=== PATIENT | female | born 2000 | race Caucasian/White ===

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

== ENCOUNTER 2020-06-04 20:15 | Emergency (ER) | payer OTHER ==
--- OUTSIDE RECORDS SUMMARY | 2020-06-04 20:17 | XMS REPORT | Continuity of Care Document ---
:2000 Author Organization [facility] t Address [address] [place] [address] [address] [place] [address] Care Team Providers Name Role Phone Anders ISABEL Attending Clinician 2, Lab Attending Clinician Unavailable John STOUT, Luis Felipe Attending Clinician Problems This patient has no known problems. Allergies, Adverse Reactions, Alerts This patient has no known allergies or adverse reactions. Medications This patient has no known medications. Procedures This patient has no known procedures. Encounters Start End Encounter Admission Attending Care Care Encounter Source Date/Time Date/Time Type Type Clinicians Facility Department ID 2020-05-13 2020-05-13 Case Anders LARAJEEV [id number] 00:00:00 00:00:00 Management Jumana Blankenship [id number] [place] [id number] Professio [phone] nal 134 [facility] 2020-05-12 2020-05-12 Process Automation Engineer 2, Adc Lab [facility] [id number] 10:28:05 10:43:05 Visit Krzysztof [id number] [place] [id number] Professio [phone] nal 353 Building 2020-05-12 2020-05-12 Initial Faye Lopez [facility] [id number] 08:44:59 10:18:25 Cam Krzysztof [id number] Visit [place] [id number] Professio [phone] [facility] 134 [facility] Results This patient has no known results.
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
--- OUTSIDE RECORDS SUMMARY | 2020-06-04 20:18 | XMS REPORT | Summary of Care ---
:2000 Author Organization [facility] Address [address] [place] [address] Care Team Providers Name Role Phone Pcp, Patient Does Not Have A Primary Care Provider +1-000-00 0-0000 Reason for Visit Reason Comments LAB Encounter Details Date Type Department Care Team Description 05/12/2020 Flame Channeler Visit [facility] Faye Lopez MD [address] [facility] [address] [place] [address] examination or test, positive result; Professional Office 2, Adc Lab Missed menses Building Phlebotomy Lab Professional Office Building [address] [facility] [address] [place] [address] Allergies No Known Allergiesdocumented as of [...] of this encounter Last Filed Vital Signs Not on filedocumented in this encounter Nursing Notes Adriane Montero - 05/12/2020 2:00 PM CDT Venipuncture collection performed by clean technique on the right anticubitus. Total of 1 attempts were made. Slight pressure and a bandage/dressing were applied to the site(s). The patient experiencedno complications. The following specimens were processed according to instructions and sent to [facility] laboratories per lab order on 05/12/20: LT BLUE SST 1 RED LAV 2 PPT DK GREEN (LiHep) DK GREEN (SodH) [place] DK BLUE (K2) DK BLUE (S) ACD Blood Culture NIPT/NTD documented in this encounter Plan of Treatment Date Type Specialty Care Team Description 01/27/2021 Office Visit Obstetrics & Gynecology Heather Lopez MD [address] [place] [address] [address] [place] [address] [phone] Health Maintenance Due Date Last Done Comments [...] Name Priority Date/Time Associated Diagnosis Comme nts CBC WITH DIFF Routine 05/12/2020 10:33 AM Results for this CDT examination or test, procedu re are in positive result the results Missed menses section. TOTAL BETA HCG Routine 05/12/2020 10:33 AM Missed menses Resul ts for this ASSAY CDT procedure are i n the results section. documented in this encounter Results HCG, QUANTITATIVE, (05/12/2020 10:33 AM CDT) Pathologist Sig [facility] BETA HCG <2.39 Non- female [facility] ITAL and male patients: <5 LABORATORY mIU/mL Specimen Blood Narrative Performed At [facility] LABORATORY Gestational Age Range (mIU/mL) 1-10 Weeks 4 [id number] 11-15 Weeks 16779-889547 16-22 Weeks 7480-345702 23-40 Weeks 1531-938434 Biotin has been reported to cause a negative bias, interpret results relative to patient's use of biotin. Performing Organization Address City/State/Zipcode Phone Number [facility] CLIA: [id number] [place], [place] [id number] LABORATORY [address] CBC WITH DIFF (05/12/2020 10:33 AM CDT) Pathologist [facility] WBC 8.76 4.30 - 11.10 [facility] 10*3/L [facility] LABORATORY RBC 4.83 3.93 - 5.25 [facility] 10*6/L [facility] LABOR[facility] HGB 11.9 11.6 - 15.0 [facility] g/dL [facility] HCT 38.2 35.7 - 45.2 % [facility] MCV 79.1 (L) 80.6 - 95.5 fL [facility] MCH 24.6 (L) 25.9 - 32.8 pg [facility] MCHC 31.2 (L) 31.6 - 35.1 [facility] g/dL [facility] RDW-SD 43.8 39.0 - 49.9 fL [facility] RDW-CV 15.3 12.0 - 15.5 % [facility]OR[facility] PLT 278 166 - 358 [facility] 10*3/L HOSPITAL LABORATORY MPV 11.3 9.5 - 12.9 fL [facility] NRBC/100 WBC 0.0 0.0 - 10.0 /100 [facility] WBCs [facility] LABORAT[facility] NRBC x10^3 <0.01 10*3/L [facility] GRAN MAT (NEUT) % 68.7 % [facility] IMM GRAN % 0.50 % [facility] LYMPH % 22.3 % [facility] MONO % 7.4 % [facility] EOS % 0.9 % [facility] BASO % 0.2 % [facility] GRAN MAT x10^3(ANC) 6.02 1.88 - 7.09 [facility] 10*3/uL [facility] LABORAT[facility] IMM GRAN x10^3 0.04 0.00 - 0.06 [facility] 10*3/uL [facility] LAB[facility] LYMPH x10^3 1.95 1.32 - 3.29 [facility] 10*3/uL [facility] MONO x10^3 0.65 0.33 - 0.92 [facility] 10*3/uL [facility] EOS x10^3 0.08 0.03 - 0.39 [facility] 10*3/uL [facility] LAB[facility] BASO x10^3 <0.03 0.01 - 0.07 [facility] 10*3/uL [facility] LABOR[facility] Specimen Blood Performing Organization Address City/State/Zipcode Phone Number [facility] CLIA: [id number] [place] [address] [address] documented in this encounter Visit Diagnoses Diagnosis examination or test, positive result Missed menses Absence of menstruation documented in this encounter documented as of this encounter
--- OUTSIDE RECORDS SUMMARY | 2020-06-04 20:18 | XMS REPORT | Summary of Care ---
:2000 Author Organization [facility] Address [address] [place] [id number] Care Team Providers Name Role Phone Pcp, Patient Does Not Have A Primary Care Provider +[id number] 0-0000 Reason for Visit Reason Comments New Medication Encounter Details Date Type Department Care Team Description 05/13/2020 Case Management [facility] Jumana Mcnamara N Medication [facility]- [facility] [address], [address] [place] [address] [address] [address] [place] [address] [phone] Allergies No Known Allergiesdocumented as of this encounter (statuses as of 05/13/2020) Medications Medication Sig Dispensed Refills Start Date End Date Status azithromycin 500 mg Take 2 tablets 2 tablet 0 05/13/2020 08/0 02/2020 Active tabletIndications: by mouth daily Chlamydia trachomatis for 1 day. infection of lower genitourinary sites documented as of this encounter (statuses as of 05/13/2020) Active Problems Problem Noted Date Obesity, Class III, BMI 40-49.9 (morbid obesity) 05/12 Missed menses 05/12/2020 Comments Yes documented as of this encounter (statuses as of 05/13/2020) Social History Tobacco Use Types Packs/Day Years [...] Signs Not on filedocumented in this encounter Plan of Treatment Date Type Specialty Care Team Description 01/27/2021 Office Visit Obstetrics & Gynecology Heather Lopez MD [address] [place] [address] DR. Hunt [address] [place] [address] 15 [phone] Health Maintenance Due Date Last Done Comments [...] this topic documented as of this encounter Results Not on filedocumented in this encounter Visit Diagnoses Diagnosis Chlamydia trachomatis infection of lower genitourinary sites - Primary documented in this encounter Insurance Payer Benefit Plan / Group Subscriber ID Effective Dates Phone Address Type AETNA AETNA CHOICE POS II [id number] 2019-Present POS documented as of this encounter
[2020-06-04] MEDS ORDERED: ACETAMINOPHEN 500 MG TAB ONE (20:45)
--- NOTE | 2020-06-04 21:17 | RAD REPORT ---
EXAM DESCRIPTION: CT - Head Brain Wo Cont - 06/04/2020 8:56 pm CLINICAL HISTORY: Headache status post head injury COMPARISON: None. TECHNIQUE: Computed axial tomography of the head was obtained. IV contrast was not requested. All CT scans are performed using dose optimization technique as appropriate and may include automated exposure control or mA/KV adjustment according to patient size. FINDINGS: An intracranial bleed is not seen . The ventricles are normal in caliber. No extra-axial fluid collection is noted. Fluid within the sinuses/ mastoids is not seen. IMPRESSION: No acute intracranial abnormality is seen. If patient's symptoms persist MRI of the bra in would be recommended.
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
[2020-06-09 19:14] VITALS: BP 117/86; TEMP 99; O2SAT 99
== END 2020-06-04 21:37 | disposition home or self-care (01) ==
LOC: ER 20:15
DX: S00.03XA Contusion of scalp, initial encounter (principal); W22.8XXA Striking against or struck by other objects, initial encounter; Y93.89 Activity, other specified; Y92.89 Other specified places as the place of occurrence of the external cause
CPT/HCPCS: 70450; 99283

== ENCOUNTER 2022-08-01 10:37 | Emergency (ER) | payer OTHER ==
--- OUTSIDE RECORDS SUMMARY | 2022-08-01 10:42 | XMS REPORT | Continuity of Care Document ---
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 mg/gcrea <200 code = P/CRATIO) CBC W/AUTO [id number] 16:58:00 Test Item Value Reference Range Interpretation Comments WHITE BLOOD CELL (test code = WBC) 12.7 K/mm3 6.5-12.3 H RED BLOOD CELL (test code = RBC) 3.81 M/mm3 3.51-4.69 N HEMOGLOBIN (test code = HGB) 9.9 g/dL 10.1-13.8 L HEMATOCRIT (test code = HCT) 32.0 % 32.5-41.8 L MEAN CELL VOLUME (test code = MCV) 84.0 fL 84.6-96.6 L MEAN CELL HGB (test code = MCH) 26.0 pg 27.3-33.9 L MEAN CELL HGB CONCETRATION (test 30.9 gm/dL 32.0-34.2 L code = MCHC) RED CELL DISTRIBUTION WIDTH (test 13.9 % 12.2-16.3 N code = RDW) PLATELET COUNT (test code = PLT) 241 K/mm3 134-363 N MEAN PLATELET VOLUME (test code = 12.1 fL 9.2-12.7 N MPV) NEUTROPHIL % (test code = NT%) 74.5 % 57.9-77.3 N LYMPHOCYTE % (test code = LY%) 18.2 % 14.5-29.7 N MONOCYTE % (test code = MO%) 6.2 % 3.6-10.2 N EOSINOPHIL % (test code = EO%) 0.6 % 0.0-3.0 N BASOPHIL % (test code = BA%) 0.2 % 0.1-0.9 N NEUTROPHIL # (test code = NT#) 9.4 K/mm3 LYMPHOCYTE # (test code = LY#) 2.3 K/mm3 MONOCYTE # (test code = MO#) 0.8 K/mm3 EOSINOPHIL # (test code = EO#) 0.07 K/mm3 BASOPHIL # (test code = BA#) 0.0 K/mm3 RBC MORPHOLOGY REQUIRED (test code NORMAL NORMAL = RBCM) PLATELET MORPHOLOGY REQUIRED (test NORMAL NORMAL code = PLTMR) - [facility] BIO PH AL W/O [id number] 00:00:00 [facility] : 2000 Sex: F Patient Name: RICK FANG Unit No: [id number] EXAMS: CPT CODE: [id number] US FET BIO PH AL W/O NST 21579 PROCEDURE INFORMATION: Exam: US ; Follow up Exam date and time: 07/03/2021 12:21 PM Age: 21years old Clinical indication: Screening exam; Routine US screening of fetus; Third trimester (=28 weeks 0 days); Routine US, uterus; Additional info: Morbid obesity and lsa LABS AND CLINICAL REPORTS: Last menstrual period start date: 10/14/2020 Gestational age by LMP: 37 weeks, 3 days Estimated due date by last menstrual period: 07/21/2021 TECHNIQUE: Imaging protocol: Transabdominal ultrasound of the uterus, real time with image documentation. Follow-up (eg, re-evaluation of fetalsize by measuring standard growth parameters and amniotic fluid volume, re-evaluation of organ system(s) suspected or confirmed to be abnormal on a previous scan). COMPARISON: OT US LTD 01/31/2021 6:06 AM FINDINGS: Gestation: Intrauterine gestation. presentation: Cephalic presentation. heart rate: heart rate of 137 bpm. Placenta: Anterior grade 2 placenta without placenta previa. Amniotic fluid index: Normal amniotic fluid index of 12.7 cm. BIOMETRY: Gestational age (AUA):37 weeks, 6 days Estimated due date (AUA): 07/18/2021 Estimated weight: 3417 g (7 lb, 9 oz) +/- 499 g Estimated weight percentile: 85 % Biparietal diameter: 9.3 cm (37 weeks, 5 days) Head ci rcumference: 33 cm (37 weeks, 4 days) Abdominal circumference: 34.8 cm (38 weeks, 5 days) Humerus length: 6.6 cm (38 weeks, 2 days) Femur length: 7.3 cm (37 weeks, 3 days) MATERNAL: Cervix: The cervix was not well visualized. Right adnexa: The right ovary was not visualized. No adnexal mass. Left adnexa: The left ovary was not visualized. No adnexal mass. PROCEDURE INFORMATION: Exam: US Biophysical Profile Without Non-Stress Test Exam date and time: 07/03/2021 12:21 PMAge: 21 years old Clinical indication: Screening exam; Routine US screening of fetus; Third trimester (=28 weeks 0 days); Routine US, uterus; [facility] NAME: RICK FANG Radiology Department PHYS: Ana Laura Ramires MD [address] : 2000 AGE: 21 SEX: Nell [place], [place] [address] LOC: EdisRAD PHONE #: [phone] EXAM DATE: 07/03/2021 STATUS:REG CLI FAX #: [phone] RAD NO: Page 1 Signed Report (CONTINUED) Patient Name: RICK FANG Unit No: [id number] EXAMS: CPT CODE: [id number] US FET BIO PH AL W/O NST 30049 (Continued) Additional info: Morbid obesity and lsa TECHNIQUE: Imaging protocol: US biophysical profile without non-stress testing. COMPARISON: OT US LTD 01/31/2021 6:06 AM FINDINGS: BIOPHYSICAL PROFILE: Breathin/2 Gross body movements: 2/2 tone: 2/2 Qualitative amniotic fluid: 2/2 Biophysical Profile Score: 8/8 IMPRESSION: US ; Follow up Borderline large for gestational age fetus with estimated weight of 7 lb, 9 oz (85%). US Biophysical Profile Wi thout Non-Stress Test Biophysical profile score is 8 out of 8. at 1625 Reported and signed by: Anand Willett MD CC: Ana Laura Yung MD Technologist: Yasemin Mauricio RDMS Probe: Trnscrbd D/ (162) GCD.CPS Orig Print D/T: S: 07/03/2021 (1625) [facility] NAME: RICK FANG Radiology Department PHYS: Ana Laura Ramires MD [address] : 2000 AGE: 21 SEX: F [place], [place] [address] LOC: EdisRAD PHONE #: [phone] EXAM DATE: 07/03/2021 STATUS: REG CLI FAX #: [phone] RAD NO: Page 2 Signed Report Patient Name: RICK FANG Unit No: [id number] EXAMS: CPT CODE: [id number] US FET BIO PH AL W/O NST 84310 (Continued) [facility] [place] [facility] NAME: RICK FANG Radiology Department PHYS: Ana Laura Ramires MD [address] : 2000 AGE: 21 SEX: F [place] [address] LOC: EdisRAD PHONE #: [phone] EXAM DATE: 07/03/2021 STATUS: REG CLI FAX #: [phone] RAD NO: Page 3 Signed Report- US FLW UP 2021-07-03 00:00:00 [facility] : 2000 Sex: F Patient Name: RICK FANG Unit No: [id number] EXAMS: CPT CODE: [id number] US FLW UP [address] PROCEDURE INFORMATION: Exam: US ; Follow up Exam date and time: 07/03/2021 12:21 PM Age: 21 yearsold Clinical indication: Screening exam; Routine US screening of fetus; Third trimester (=28 weeks 0days); Routine US, uterus; Additional info: Morbid obesity and lsa LABS AND CLINICAL REPORTS: Last menstrual period start date: 10/14/2020 Gestational age by LMP: 37 weeks, 3 days Estimated due date by last menstrual period: 07/21/2021 TECHNIQUE: Imaging protocol: Transabdominal ultrasound ofthe uterus, real time with image documentation. Follow-up (eg, re-evaluation of size by measuring standard growth parameters and amniotic fluid volume, re-evaluation of organ system(s) davis spected or confirmed to be abnormal on a previous scan). COMPARISON: US LTD 01/31/2021 6:06 AM FINDINGS: Gestation: Intrauterine gestation. presentation: Cephalic presentation. Fetalheart rate: heart rate of 137 bpm. Placenta: Anterior grade 2 placenta without placenta previa. Amniotic fluid index: Normal amniotic fluid index of 12.7 cm. BIOMETRY: Gestational age (AUA): 37 weeks, 6 days Estimated due date (AUA): 07/18/2021 Estimated weight: 3417 g (7 lb, 9 oz) +/- 499g Estimated weight percentile: 85 % Biparietal diameter: 9.3 cm (37 weeks, 5 days) Head circumference: 33 cm (37 weeks, 4 days) Abdominal circumference: 34.8 cm (38 weeks, 5 days) Humerus length:6.6 cm (38 weeks, 2 days) Femur length: 7.3 cm (37 weeks, 3 days) MATERNAL: Cervix: The cervix was not well visualized. Right adnexa: The right ovary was not visualized. No adnexal mass. Left adnexa: The left ovary was not visualized. No adnexal mass. PROCEDURE INFORMATION: E xam: US Biophysical Profile Without Non-Stress Test Exam date and time: 07/03/2021 12:21 PM Age: 21 years old Clinical indication: Screening exam; Routine US screening of fetus; Third trimester (=28 weeks 0 days); Routine US, uterus; [facility] NAME: RICK FANG Radiology Department PHYS: Ana Laura Ramires MD [address] : 2000 AGE: 21 SEX: F [place], [place] [address] LOC: CARIN PHONE #: [phone] EXAM DATE: 07/03/2021 STATUS: REGCLI FAX #: [phone] RAD NO: Page 1 Signed Report (CONTINUED) Patient Name: RICK FANG Unit No: [id number] EXAMS: CPT CODE: [id number] US FLW UP 62400 (Continued) Additional info: Morbidobesity and lsa TECHNIQUE: Imaging protocol: US biophysical profile without non-stress testing. COMPARISON: OT US LTD 01/31/2021 6:06 AM FINDINGS: BIOPHYSICAL PROFILE: Breathin/2 Gross body movements: 2/2 tone: 2/2 Qualitative amniotic fluid: 2/2 Biophysical Profile Score: 8/8 IMPRESSION: US ; Follow up Borderline large for gestational age fetus with estimated weight of 7 lb, 9 oz (85%). US Biophysical Profile Without Non-Stress Test Biophysical profile score is 8 out of 8. at 1625 Reported and signed by: Anand Willett MD CC: Ana Laura Yung MD Technologist: Yasemin Mauricio RDMS Probe: Trnscrbd D/ (1625) GCD.CPS Orig Print D/T: S: 07/03/2021 (1625) [facility] [place] [facility] NAME: RICK FANG Radiology Department PHYS: Ana Laura Ramires MD [address] : 2000 AGE: 21 SEX: F [place], [place] [address] LOC: F.RAD PHONE #: [phone] EXAM DATE: 07/03/2021 STATUS: REG CLI FAX #: [phone] RAD NO:Page 2 Signed Report Patient Name: RICK FANG Unit No: [id number] EXAMS: CPT CODE: [id number] US FLW UP 93989 (Continued) [facility] [place] [facility] NAME: RICK FANG Radiology Department PHYS: Ana Laura Ramires MD [address] : 2000 AGE: 21 SEX: F [place], [place] [address] LOC: EdisRAD PHONE #: [phone] EXAM DATE: 07/03/2021 STATUS: AURELIO COHN FAX #: [phone] RAD NO: Page 3 Signed Report- US PREG UT [id number] 06:47:00 [facility] : 2000 Sex: F Patient Name: RICK FANG Unit No: [id number] EXAMS: CPT CODE: [id number] US PREG UT TRANSVAGINAL 66903 EXAM: US, US LTD: 01/31/2021, 0606 hours EXAM: US, US PREG UT TRANSVAGINAL: 01/31/2021, 0606 hours HISTORY: 15 weeks . Lower abdominal pain. Pelvic pain. TECHNIQUE: Transabdominal and transvaginal sonographic evaluation is performed using grayscale, color flow and Doppler imaging as appropriate. COMPARISON: None FINDINGS: The examination shows a single fetus in breech presentation. Normal cardiac activity is noted at 157 per second. The amount of amniotic fluid is normal. The placenta is anterior, grade 0. There is no evidence of previa. Gestational age by LMP is 15 weeks 4 days. Right ovary: 3.4 x 2.6 x 2.8 cm Left ovary: 2.9 x 1.9 x 1.3 cm Normal flow seen to the both ovaries. A2.3 x 1.7 x 2.0 cm cyst seen in the right ovary. Cervical length is 3.57 cm. If indicated, follow-upultrasound can be performed for complete assessment. IMPRESSION: Single live fetus in breech presentation. heart rate is 157 bpm. Right ovarian cyst. SL; [JSYED-H] at 0647 Reported and signed by: Javed Boogie M.D. CC: Elfego Merrill MD; Ana Laura Yung MD Technologist: Sue Mota, [facility] Probe: [id number] Trnscrbd D/ (0647) [email or web address] Orig Print D/T: S: 01/31/2021 (0650) [facility] [place] [facility] NAME: RICK FANG Radiology Department PHYS: Elfego Lockhart [address] : 2000 AGE: 21 SEX: [place] [address] LOC: EdisERS PHONE #: [phone] EXAM DATE: 01/31/2021 STATUS: REG ER FAX #: [phone] RAD NO: Page 1 Signed Report Patient Name: RICK FANG UnitNo: [id number] EXAMS: CPT CODE: [id number] US PREG UT TRANSVAGINAL [address]402 (Continued) [facility] [place] [facility] NAME: RICK FANG Radiology Department PHYS: Elfego Lockhart [address] : 2000 AGE: 21 SEX: F [place] [address] LOC: EdisERS PHONE #: [phone] EXAM DATE: 01/31/2021 STATUS: REG ER FAX #: [phone] RAD NO: Page 2 Signed Report- US [id number] 06:47:00 [facility] 2000 Sex: F Patient Name: RICK FANG Unit No: [id number] EXAMS: CPT CODE: [id number] US LTD 00408 EXAM: US, US LTD: 01/31/2021, 0606 hours EXAM: US, US PREG UT TRANSVAGINAL: 01/31/2021, 0606 hours HISTORY: 15 weeks . Lower abdominal pain. Pelvic pain. TECHNIQUE: Transabdominal and transvaginal sonographic evaluation is performed using grayscale, color flow and Doppler imaging as appropriate. COMPARISON: None FINDINGS: The examination shows a single fetus in breech presentation. Normal cardiac activity is noted at 157 per second. The amount of amniotic fluid is normal. The placenta is anterior, grade 0. There is no evidence of previa. Gestational age by LMP is 15 weeks 4 days. Right ovary: 3.4 x 2.6 x 2.8 cm Left ovary: 2.9 x 1.9 x 1.3 cm Normal flow seen to the both ovaries. A 2.3 x 1.7 x 2.0 cm cyst seen in the right ovary. Cervical length is 3.57 cm. If indicated, follow-up ultrasound can be performed for complete assessment. IMPRESSION: Single live fetus in breech presentation. heart rate is 157 bpm. Right ovarian cyst. SL; [JSYED-H] at 0647 Reported and signed by: Javed Boogie M.D. CC: Elfego Merrill MD; Ana Laura Yung MD Technologist: Sue Mota RDMS Probe: Trnscrbd D/ (0647) Brandon.[email or web address] Orig Print D/T: S: 01/31/2021 (0650) [facility] [place] [facility] NAME: RICK FANG Radiology D epartment PHYS: Elfego Lockhart [address] : 2000 AGE: 21 SEX: F [place], [place] [address] LOC: LATIA PHONE #: [phone] EXAM DATE: 01/31/2021 STATUS: REG ER FAX #: [phone] RAD NO: Page 1 Signed Report Patient Name: RICK FANG Unit No: [id number] EXAMS: CPT CODE: [id number] LTD 79187 (Continued) [facility] [place] [facility] NAME: RICK FANG Radiology Department PHYS: Elfego Schwartz [address] : 2000 AGE: 21 SEX: F [place], [place] [address] LOC: EdisERS PHONE #: [phone] EXAM DATE: 01/31/2021 STATUS: REG ER FAX #: [phone] RAD NO: Page 2 Signed ReportCOMPREHENSIVE METABOLIC [id number] 06:40:00 Test Item Value Reference Range Interpretation Comments SODIUM (test code = NA) 133 mEq/L 135-145 L POTASSIUM (test code = K) 3.8 mEq/L 3.5-5.0 N CHLORIDE (test code = CL) 100 mEq/L 100-115 N CARBON DIOXIDE (test code = CO2) 27 mEq/L 22-31 N ANION GAP (test code = GAP) 9.60 10-20 L GLUCOSE (test code = GLU) 88 mg/dL 65-110 N BLOOD UREA NITROGEN (test code = 8 mg/dL 7-18 N BUN) GLOMERULAR FILTRATION RATE (test 156 ml/min >60 N code = GFR) CREATININE (test code = CREAT) 0.5 mg/dL 0.5-1.0 N TOTAL PROTEIN (test code = PROT) 7.0 gm/dL 6.3-8.2 N ALBUMIN (test code = ALB) 2.8 gm/dL 3.4-4.8 L CALCIUM (test code = CA) 9.0 mg/dL 8.4-10.2 N BILIRUBIN TOTAL (test code = BILT) 0.2 mg/dL 0.2-1.0 N SGOT/AST (test code = AST) 12 units/L 15-37 L SGPT/ALT (test code = ALT) 17 units/L 12-78 N ALKALINE PHOSPHATASE TOTAL (test 52 units/L 46-116 N code = ALKP) UA RFLX MICR CULT IF [id number] 06:10:00 Test Item Value Reference Range Interpretation Comments UA COLOR (test code = COLU) YELLOW YELLOW UA APPEARANCE (test code = CLEAR CLEAR APPU) UA GLUCOSE DIPSTICK (test code NEGATIVE NEG = DGLUU) UA BILIRUBIN DIPSTICK (test NEGATIVE NEG code = BILU) UA KETONE DIPSTICK (test code NEGATIVE NEG = KETU) UA SPECIFIC GRAVITY (test code 1.012 1.001-1.035 N = SGU) UA BLOOD DIPSTICK (test code = NEG NEG ALEXANDRA) UA PH DIPSTICK (test code = 6.0 5-9 ROSI) UA PROTEIN DIPSTICK (test code NEGATIVE NEG = PROU) UA UROBILINIOGEN DIPSTICK NEGATIVE mg/dL NEG (test code = URO) UA NITRITE DIPSTICK (test code NEG NEG = PRIYANK) UA LEUKOCYTE ESTERASE DIPSTICK NEG NEG (test code = LEUU) UA WBC (test code = WBCU) 0-2 #/hpf NONE SEEN UA RBC (test code = RBCU) 0-2 #/hpf NONE SEEN UA EPITHELIAL CELLS (test code RARE #/HPF RARE-FEW = EPIU) UA MUCUS (test code = MUCU) RARE NONE SEEN Indication for culture: Suprapubic PainSpecimen Description: CLEAN CATCHUR HCG [id number] 06:05:00 Test Item Value Reference Range Interpretation Comments UR HCG QUAL (test code = HCGQLU) POSITIVE CBC W/AUTO [id number] 06:04:00 Test Item Value Reference Range Interpretation Comments WHITE BLOOD CELL (test code = WBC) 12.5 K/mm3 6.5-12.3 H RED BLOOD CELL (test code = RBC) 4.18 M/mm3 3.51-4.69 N HEMOGLOBIN (test code = HGB) 11.8 g/dL 10.1-13.8 N HEMATOCRIT (test code = HCT) 35.7 % 32.5-41.8 N MEAN CELL VOLUME (test code = MCV) 85.4 fL 84.6-96.6 N MEAN CELL HGB (test code = MCH) 28.2 pg 27.3-33.9 N MEAN CELL HGB CONCETRATION (test 33.1 gm/dL 32.0-34.2 N code = MCHC) RED CELL DISTRIBUTION WIDTH (test 15.2 % 12.2-16.3 N code = RDW) PLATELET COUNT (test code = PLT) 217 K/mm3 134-363 N MEAN PLATELET VOLUME (test code = 11.2 fL 9.2-12.7 N MPV) NEUTROPHIL % (test code = NT%) 76.0 % 57.9-77.3 N LYMPHOCYTE % (test code = LY%) 15.7 % 14.5-29.7 N MONOCYTE % (test code = MO%) 6.6 % 3.6-10.2 N EOSINOPHIL % (test code = EO%) 1.1 % 0.0-3.0 N BASOPHIL % (test code = BA%) 0.2 % 0.1-0.9 N NEUTROPHIL # (test code = NT#) 9.5 K/mm3 LYMPHOCYTE # (test code = LY#) 2.0 K/mm3 MONOCYTE # (test code = MO#) 0.8 K/mm3 EOSINOPHIL # (test code = EO#) 0.14 K/mm3 BASOPHIL # (test code = BA#) 0.0 K/mm3 RBC MORPHOLOGY REQUIRED (test code NORMAL NORMAL = RBCM) PLATELET MORPHOLOGY REQUIRED (test NORMAL NORMAL code = PLTMR) LEGIONELLA URINARY ANTIGEN [id number] 20:00:00 Test Item Value Reference Range Interpretation Comments Legionella Urinary Negative Negative Antigen (test code = 7163602394) FREDERICK (test code = FREDERICK) Negative for L. pneumophilia serogroup I antigen in urine suggesting no recent or current infection. Infection due to Legionella cannot be ruled out since other serogroups and species may cause disease. Furthermore, antigens may not be present in urine during early stage of infection, or the level of antigen present in urine may be below the detection limit of the test. Lab Interpretation (test Normal code = 40974-8) [facility] [id number] 17:01:00 Test Item Value Reference Range Interpretation Comments CRP (test code = 5673745131) 1.2 mg/dL <0.8 H Lab Interpretation (test code = Abnormal 26557-0) [id number] 14:57:00 Test Item Value Reference Range Interpretation Comments Procalcitonin (test 0.08 ng/mL <0.07 H code = 5389358584) FREDERICK (test code = FREDERICK) INTERPRETATION OF PROCALCITONIN RESULTS IN ADULTS >= 18 YEARS OF AGE Initiation and discontinuation of antibiotics on patients with suspected or confirmed Lower Respiratory Tract Infection in Adults >= 18 years of age. + +-------- --------+ + -----+|Procalcitonin |Interpretation ?|Antibiotic ? ? |Considerations ? |ng/mL ? | ?|recommendation | ? + +-------- --------+ + -----+| <0.1 ? | Bacterial ? ? ?| Strongly ? ? ?| ? | ?| infection very | discouraged ? | Overruling: ? | ?| unlikely ? ? ? | ? | ? Clinically unstable ? ? ? + +-------- --------+ + ? High risk for adverse ? ? | <0.25 ?| Bacterial ? ? ?| Discouraged ? | ? outcome ? | ?| infection ? ? ?| ? | ? SEE IMPORTANT NOTE ?| ?| unlikely ? ? ? | ? | ? + +-------- --------+ + -----+| >=0.25 ? ? ? | Bacterial ? ? ?| Encouraged ? ?| ? | ?| infection ? ? ?| ? | ? | ?| likely ? | ? | Consider treatment failure ?+ +------- ---------+ -+ if levels does not decrease | >0.5 ? | Bacterial ? ? ?| Strongly ? ? ?| appropriately ? | ?| infection very | encouraged ? ?| ? | ?| likely ? | ? | ? + +-------- --------+ + -----+ Discontinuation of antibiotics in high-acuity patients with suspected or confirmed sepsis in Adults >= 18 years of age. + +-------- --------+ + -----+|Procalcitonin |Interpretation ?|Antibiotic ? ? |Considerations ? |ng/mL ? | ?|recommendation | ? + +-------- --------+ + -----+| <0.25 ?| Bacterial ? ? ?| Strongly ? ? ?| ? | ?| infection very | discouraged ? | Overruling: ? | ?| unlikely ? ? ? | ? | ? Clinically unstable ? ? ? + +-------- --------+ + ? High risk for adverse ? ? | <0.5 or drop | Bacterial ? ? ?| Discouraged ? | ? outcome ? | >80% from ? ?| infection ? ? ?| ? | ? SEE IMPORTANT NOTE ?| highest PCT ?| unlikely ? ? ? | ? | ? | level ?| ?| ? | ? + +-------- --------+ + -----+| >=0.5 ?| Bacterial ? ? ?| Encouraged ? ?| ? | ?| infection ? ? ?| ? | ? | ?| likely ? | ? | Consider treatment failure ?+ +------- ---------+ -+ if levels does not decrease | >1.0 ? | Bacterial ? ? ?| Strongly ? ? ?| appropriately ? | ?| infection very | encouraged ? ?| ? | ?| likely ? | ? | ? + +-------- --------+ + -----+ Percentage of drop of Procalcitonin calculation for Discontinuation of antibiotics in high-acuity patients with suspected or confirmed sepsis in Adults >= 18 years of age. ? Procalcitonin highest{}-Procalcitonin current{}Delta Procalcitonin = x100% ? Procalcitonin current {} IMPORTANT NOTE: Procalcitonin may be elevated without bacterial infection by physiologic stress related to trauma, granado, chronic dialysis, metastatic cancer, surgery in the past seven days, malaria, some fungal infections, and some forms of vasculitis. The interpretation algorithm may not apply to patients with immunosuppression (equivalent of >10 mg of prednisone daily), HIV with CD4 cell count < 350 cells/mm3, active malignancy on systemic chemotherapy, solid organ transplant or hematopoietic stem cell transplantation, or hospital acquired pneumonia. Additionally, some clinical trials of procalcitonin have excluded patients with shock requiring vasopressor use, acute respiratory failure requiring mechanical ventilation, or those with known lung abscess/empyema. For further information please refer to:[email or web address] Lab Interpretation Abnormal (test code = 07376-6) [facility] [id number] 12:46:00 Test Item Value Reference Range Interpretation Comments FERRITIN (test code = 18.2 ng/mL 6-137 [id number]) FREDERICK (test code = FREDERICK) Biotin has been reported to cause a negative bias, interpret results relative to patient's use of biotin. Lab Interpretation (test Normal code = 97856-6) [facility] [id number] 12:28:26 No acute pulmonary embolism through the proximal segmental level. Extensive airspace opacities involving the left lower lobe with scatteredsimilar opacities in the lingula and right middle lobe. Giventhe knownpositive Covid test in the chart, the findings are most consistent withCovid 19 pneumonia. The findings of this study, including Covid pneumonia, have been discussedwith and acknowledged by Dr. Casas over the phone on 08/08/2020 at 1:45 AMwith readback. Preliminary Report Dictated by Resident: Wm Caraballo MD., have reviewed this study and agree with theove report.CTCHEST PULMONARY ANGIOGRAM HISTORY: 20 years-old; Female; PE suspected, high pretest prob; positiveCovid test yesterday as per chart COMPARISON: None. TECHNIQUE: ?Helical CT was performed ?after the administration of 100 mLOmnipaque-350 intravenous contrast and reconstructed at 1.25 mm slicethickness from lung base to apices, without complication. ?Display field ofview: 40 ?cm. FINDINGS: PULMONARY [place] VERONICA: Enhancement is adequate. There is no acute or chronic pulmonary embolism inthe main pulmonary artery and proximal segmental level. CHEST: Lower neck/thyroid: Unremarkable. Lungs: Multiple airspace opacities predominantly involves the left lowerlobe with similar limited opacities in the lingula and right middle lobe(3:59). No cavitation is noted. Central airway: Unremarkable. Pleura: No pleural effusion, thickening or pneumothorax. Thoracic aorta and great vessels: The normal three vessel branching patternis identified off of the aortic arch. The aorta is normal in diameter. Pulmonary arteries: Normal in caliber. Heart and pericardium: No detectable coronary arterial calcifications arepresent. Unremarkable cardiac morphology and pericardium. Lymph nodes: No enlarged thoracic lymph nodes. Mediastinum: Unremarkable. Thoracic spine and chest wall: Unremarkable, with normal thoracic vertebralbody heights. Other Lines/Tubes/Devices/Hardware: None Visualized upper abdomen: Unremarkable. [facility], Radiant Results Inft User - 08/08/2020 7:29 AM CDTCT CHEST PULMONARY ANGIOGRAMHISTORY: 20 years-old; Female; PE suspected, high pretest prob; positiveCovid test yesterday as per chartCOMPARISON: None.TECHNIQUE: Helical CT was performed after the administration of 100 mLOmnipaque-350 intravenous contrast and reconstructed at 1.25 mm slicethickness from lung base to apices, without complication. Display field ofview: 40 cm.FINDINGS:PULMONARY ARTERIES:Enhancement is adequate. There is no acute or chronic pulmonary embolism inthe main pulmonary artery and proximal segmental level.CHEST:Lower neck/thyroid:Unremarkable.Lungs: Multiple airspace opacities predominantly involves the left lowerlobe with similar limited opacities in the lingula and right middle lobe(3:59). No cavitation is noted.Central airway: Unremarkable.Pleura: No pleural effusion, thickening or pneumothorax.Thoracic aorta and great vessels: The normal three vessel branching patternis identified off of the aortic arch. The aorta is normal in diameter. Pulmonary arteries: Normal in caliber.Heart and pericardium: No detectable coronary arterial calcifications arepresent. Unremarkable cardiac morphology and pericardium.Lymph nodes: No enlarged thoracic lymph nodes.Mediastinum: Unremarkable.Thoracic spine and chest wall: Unremarkable, with normal thoracic vertebralbody heights.Other Lines/Tubes/Devices/Hardware: NoneVisualized upper abdomen: Unremarkable.IMPRESSIONNo acute pulmonary embolism through the proximal segmental level.Extensive airspace opacities involving the left lower lobe with scatteredsimilar opacities in the lingula and right middle lobe. Given the knownpositive Covid test in the chart, the findings are most consistent withCovid 19 pneumonia.The findings of this study, including Covid pneumonia, have been discussedwith and acknowledged by Dr. Casas over the phone on 08/08/2020 at 1:45 AMwith readback. Preliminary Report Dictated by Resident: Wm Benz MD., have reviewed this study and agree with theabove report.[facility] 1 [id number] 12:00:52 Airspace opacities involving the parahilar regions bilaterally,predominantly involving the left lower lung. Given the positive Covidstatus, the findings are most consistent with Covid pneumonia. Preliminary Report Dictated by Resident: Valdez Caraballo MD., have reviewed this study and agree withthe above report.XR CHEST 1 VW HISTORY: 20 years-old; Female; sob with cough and covid positive COMPARISON: CT chest earlier in descending TECHNIQUE: SINGLE VIEW CHEST RADIOGRAPH. FINDINGS: Airspace opacities involving the left medial lower lung as well as theright perihilar region. There is no pleural effusion or pneumothorax. The heart is normal in size. There is no acute osseous abnormality. [facility], Radiant Results Inft User - 08/08/2020 7:01 AM CDTXR CHEST 1 VWHISTORY: 20 years-old; Female; sob with cough and covid positive COMPARISON: CT chest earlier in descendingTECHNIQUE:SINGLE VIEW CHEST RADIOGRAPH.FINDINGS:Airspace opacities involving the left medial lower lung as well as theright perihilar region. There is no pleural effusion or pneumothorax.The heart is normal in size.There is no acute osseous abnormality.IMPRESSIONAirspace opacities involving the parahilar regions bilaterally,predominantly involving the left lower lung. Given the positive Covidstatus, the findings are most consistent with Covid pneumonia.Preliminary Report Dictated by Resident: Valdez Benz MD., have reviewed this study and agree withthe above report. [facility] CenterLACTATE [id number] 11:19:00 Test Item Value Reference Range Interpretation Comments LDH (test code = 5910069308) 608 U/L 300-600 H Lab Interpretation (test code = Abnormal 17481-8) [facility] METABOLIC PANEL (NA, K, CL, CO2, GLUCOSE, BUN, CREATININE, CA)2020-08-08 10:54:00 Test Item Value Reference Range Interpretation Comments NA (test code = 139 mmol/L 135-145 9179533185) K (test code = 3.9 mmol/L 3.5-5 5814530832) CL (test code = 105 mmol/L 98-108 4283401849) CO2 TOTAL (test code = 24 mmol/L 23-31 4356596652) AGAP (test code = 2-16 9042192772) BUN (test code = 8 mg/dL 7-23 4433140924) GLUCOSE (test code = 83 mg/dL 70-110 8278373760) CREATININE (test code = 0.53 mg/dL 0.5-1.04 9939974203) CALCIUM (test code = 8.5 mg/dL 8.6-10.6 L 7406771178) eGFR Calculation mL/min/1.73m2 (Non-) (test code = 8510225383) eGFR Calculation mL/min/1.73m2 () (test code = 5081375380) FREDERICK (test code = FREDERICK) Association of Glomerular Filtration Rate (GFR) and Staging of Kidney Disease* + --+ --+ ------+| GFR (mL/min/1.73 m2) ?| With Kidney Damage ?| ?Without Kidney Damage+ --------+ --------+ +| ?>90 ?| ?Stage one ?| ? Normal ?+ ---+ ---+ -------+| ?60-89 ?| ?Stage two ?| ? Decreased GFR ? + --+ --+ ------+| ?30-59 ?| ?Stage three ?| ? Stage three ? + --+ --+ ------+| ?15-29 ?| ?Stage four ? | ? Stage four ?+ ---+ ---+ -------+| ?<15 (or dialysis) ? ?| ?Stage five ? | ? Stage five ?+ ---+ ---+ -------+ *Each stage assumes the associated GFR level has been in effect for at least three months. ?Stages 1 to 5, with or without kidney disease, indicate chronic kidney disease. Notes: Determination of stages one and two (with eGFR >59mL/min/1.73 m2) requires estimation of kidney damage for at least three months as defined by structural or functional abnormalities of the kidney, manifested by either:Pathological abnormalities or Markers of kidney damage (including abnormalities in the composition of the blood or urine or abnormalities in imaging tests). Lab Interpretation Abnormal (test code = 67792-8) [facility] Center[facility]AT[facility] PAN[facility] (73389[facility] (ALB,T.PRO,BILI T,BU/BC,ALT,AST,ALK PHOS)2020-08-08 10:54:00 Test Item Value Reference Range Interpretation Comments TOTAL BILI (test code = 8587010164) 0.4 mg/dL 0.1-1.1 BILI UNCON (test code = 9152167913) 0.3 mg/dL 0.1-1.1 BILI CONJ (test code = 7108593777) 0.0 mg/dL 0-0.3 T PROTEIN (test code = 7982664113) 6.9 g/dL 6.3-8.2 ALBUMIN (test code = 0512364540) 3.8 g/dL 3.5-5 ALK PHOS (test code = 9659665645) 53 U/L 34-122 ALTv (test code = 1742-6) 105 U/L 5-35 H AST(SGOT) (test code = 2652729715) 53 U/L 13-40 H Lab Interpretation (test code = Abnormal 08329-8) [facility] CenterCOMP. METABOLIC PANEL (53770)2020-08-08 04:22:00 Test Item Value Reference Range Interpretation Comments NA (test code = 137 mmol/L 135-145 5474630660) K (test code = 3.9 mmol/L 3.5-5 2261533929) CL (test code = 101 mmol/L 98-108 9813678036) CO2 TOTAL (test code = 25 mmol/L 23-31 4557901880) AGAP (test code = 2-16 1273554555) BUN (test code = 8 mg/dL 7-23 5199486704) GLUCOSE (test code = 87 mg/dL 70-110 0536146075) CREATININE (test code = 0.59 mg/dL 0.5-1.04 4619709084) TOTAL BILI (test code = 0.4 mg/dL 0.1-1.9 7566761952) CALCIUM (test code = 9.2 mg/dL 8.6-10.6 6845107192) T PROTEIN (test code = 7.5 g/dL 6.3-8.2 1948933890) ALBUMIN (test code = 4.3 g/dL 3.5-5 2450386816) ALK PHOS (test code = 60 U/L 34-122 6148301980) ALTv (test code = 116 U/L 5-35 H 1742-6) AST(SGOT) (test code = 61 U/L 13-40 H 8703910736) eGFR Calculation mL/min/1.73m2 (Non-) (test code = 6686035112) eGFR Calculation mL/min/1.73m2 () (test code = 6254643730) FREDERICK (test code = FREDERICK) Association of Glomerular Filtration Rate (GFR) and Staging of Kidney Disease* + --+ --+ ------+| GFR (mL/min/1.73 m2) ?| With Kidney Damage ?| ?Without Kidney Damage+ --------+ --------+ +| ?>90 ?| ?Stage one ?| ? Normal ?+ ---+ ---+ -------+| ?60-89 ?| ?Stage two ?| ? Decreased GFR ? + --+ --+ ------+| ?30-59 ?| ?Stage three ?| ? Stage three ? + --+ --+ ------+| ?15-29 ?| ?Stage four ? | ? Stage four ?+ ---+ ---+ -------+| ?<15 (or dialysis) ? ?| ?Stage five ? | ? Stage five ?+ ---+ ---+ -------+ *Each stage assumes the associated GFR level has been in effect for at least three months. ?Stages 1 to 5, with or without kidney disease, indicate chronic kidney disease. Notes: Determination of stages one and two (with eGFR >59mL/min/1.73 m2) requires estimation of kidney damage for at least three months as defined by structural or functional abnormalities of the kidney, manifested by either:Pathological abnormalities or Markers of kidney damage (including abnormalities in the composition of the blood or urine or abnormalities in imaging tests). Lab Interpretation Abnormal (test code = 35939-9) [facility] CenterD-[id number] 04:19:00 Test Item Value Reference Interpretation Comments Range D-DIMER (test code = See_Comment H [Autom ated 9963062144) message] The system which generated this result transmitted reference range : <0.50 ?g/mL (FEU). The reference range was not used to interpret this result as normal/abnormal . FREDERICK (test code = This test may be FREDERICK) used in conjunction with a clinical pretest probability (PTP) assessment model to exclude venous thromboembolism (VTE) in patients suspected of deep venous thrombosis (DVT) and pulmonary embolism (PE) A D-Dimer value less than 0.50 ?g/ml (FEU) has a negative predicative value of 96 to 100% (95% CI)and 97 to 100% (95% CI) as an aid in the diagnosis of deep vein thrombosis (DVT) and pulmonary embolism when there is low or moderate pretest probability of PE or DVT. D-Dimer values are expressed in initial fibrinogen equivalent units (FEU)" The assay results should be used with other information, including the clinical context, in forming a diagnosis. Lab Interpretation Abnormal (test code = 38495-2) [facility] CenterPREGNANCY TEST, [id number] 04:18:00 Test Item Value Reference Range Interpretation Comments PREG SERUM (test code Negative = 5435840707) FREDERICK (test code = FREDERICK) Less than 10 IU/L. ?If low titer or ectopic is suspected, resubmit specimen in 48-72 hours. [facility] WITH [id number] 04:02:00 Test Item Value Reference Range Interpretation Comments WBC (test code = See_Comment [Automated 6690-2) message] The sy stem which generated this result transmitted reference range : 4.30 - 11.10 10*3/?L. The reference range was not used to interpret this result as normal/abnormal . RBC (test code = See_Comment [Automated 789-8) message] The sy stem which generated this result transmitted reference range : 3.93 - 5.25 10*6/?L. The reference range was not used to interpret this result as normal/abnormal . HGB (test code = 13.3 g/dL 11.6-15 718-7) HCT (test code = 41.5 % 35.7-45.2 4544-3) MCV (test code = 79.8 fL 80.6-95.5 L 787-2) MCH (test code = 25.6 pg 25.9-32.8 L 785-6) MCHC (test code = 32.0 g/dL 31.6-35.1 786-4) RDW-SD (test code = 43.3 fL 39-49.9 16253-2) RDW-CV (test code = 14.8 % 12-15.5 788-0) PLT (test code = See_Comment [Automated 777-3) message] The sy stem which generated this result transmitted reference range : 166 - 358 10*3/ ?L. The reference r brittney was not used to interpret this result as normal/abnormal . MPV (test code = 10.7 fL 9.5-12.9 19355-8) NRBC/100 WBC (test See_Comment [Automat ed code = 7484956304) message] The system which generated this result transmitted reference range : 0.0 - 10.0 /100 WBCs. The refer ence range was not u sed to interpret th is result as normal/abnormal . NRBC x10^3 (test code <0.01 See_Comment [Auto mated = 7516245001) message] The s ystem which generated this result transmitted reference range : 10*3/?L. The reference range was not used to interpret this result as normal/abnormal . GRAN MAT (NEUT) % 57.2 % (test code = 770-8) IMM GRAN % (test code 0.40 % = 7687830652) LYMPH % (test code = 34.6 % 736-9) MONO % (test code = 7.0 % 5905-5) EOS % (test code = 0.6 % 713-8) BASO % (test code = 0.2 % 706-2) GRAN MAT x10^3(ANC) 3.11 10*3/uL 1.88-7.09 (test code = 8294782894) IMM GRAN x10^3 (test <0.03 0-0.06 code = 7883038856) LYMPH x10^3 (test code 1.88 10*3/uL 1.32-3.29 = 731-0) MONO x10^3 (test code 0.38 10*3/uL 0.33-0.92 = 742-7) EOS x10^3 (test code = 0.03 10*3/uL 0.03-0.39 711-2) BASO x10^3 (test code <0.03 0.01-0.07 = 704-7) Lab Interpretation Abnormal (test code = 93333-5) [facility] CenterHC, QUANTITATIVE, [id number] 17:52:00 Test Item Value Reference Range Interpretation Comments BETA HCG (test <2.39 See_Comment [Automated m essage] code = The system [facility] h 4159137442) generated this result transmit ever reference range : Non- fe male and male patien ts: <5 mIU/mL. The reference range was not used to interpret this result as normal/abnormal . FREDERICK (test code Gestational Age ? ? = FREDERICK) ?Range (mIU/mL) 1-10 ?Weeks ?90-75272703-36 Weeks ?80659-93785456-43 Weeks ?0023-06057569-21 Weeks ?2790-743292 Biotin has been reported to cause a negative bias, interpret results relative to patient's use of biotin. [facility] WITH [id number] 17:29:00 Test Item Value Reference Range Interpretation Comments WBC (test code = See_Comment [Automated 9490-2) message] The sy stem which generated this result transmitted reference range : 4.30 - 11.10 10*3/?L. The reference range was not used to interpret this result as normal/abnormal . RBC (test code = See_Comment [Automated 789-8) message] The sy stem which generated this result transmitted reference range : 3.93 - 5.25 10*6/?L. The reference range was not used to interpret this result as normal/abnormal . HGB (test code = 11.9 g/dL 11.6-15 718-7) HCT (test code = 38.2 % 35.7-45.2 4544-3) MCV (test code = 79.1 fL 80.6-95.5 L 787-2) MCH (test code = 24.6 pg 25.9-32.8 L 785-6) MCHC (test code = 31.2 g/dL 31.6-35.1 L 786-4) RDW-SD (test code = 43.8 fL 39-49.9 40293-3) RDW-CV (test code = 15.3 % 12-15.5 788-0) PLT (test code = See_Comment [Automated 777-3) message] The sy stem which generated this result transmitted reference range : 166 - 358 10*3/ ?L. The reference r brittney was not used to interpret this result as normal/abnormal . MPV (test code = 11.3 fL 9.5-12.9 13759-4) NRBC/100 WBC (test See_Comment [Automat ed code = 6525178980) message] The system which generated this result transmitted reference range : 0.0 - 10.0 /100 WBCs. The refer ence range was not u sed to interpret th is result as normal/abnormal . NRBC x10^3 (test code <0.01 See_Comment [Auto mated = 7269216934) message] The s ystem which generated this result transmitted reference range : 10*3/?L. The reference range was not used to interpret this result as normal/abnormal . GRAN MAT (NEUT) % 68.7 % (test code = 770-8) IMM GRAN % (test code 0.50 % = 8618776544) LYMPH % (test code = 22.3 % 736-9) MONO % (test code = 7.4 % 5905-5) EOS % (test code = 0.9 % 713-8) BASO % (test code = 0.2 % 706-2) GRAN MAT x10^3(ANC) 6.02 10*3/uL 1.88-7.09 (test code = 2334679260) IMM GRAN x10^3 (test 0.04 10*3/uL 0-0.06 code = 6448980965) LYMPH x10^3 (test code 1.95 10*3/uL 1.32-3.29 = 731-0) MONO x10^3 (test code 0.65 10*3/uL 0.33-0.92 = 742-7) EOS x10^3 (test code = 0.08 10*3/uL 0.03-0.39 711-2) BASO x10^3 (test code <0.03 0.01-0.07 = 704-7) Lab Interpretation Abnormal (test code = 55919-2) [facility] URINALYSIS W/O SPECIFIC [id number] 14:37:00 Test Item Value Reference Range Interpretation Comments POCT PH U (test code = 3254) n/a 5-8 POCT U LEUK EST (test code = 3263) n/a Negative - Negative POCT U NIT (test code = 3262) n/a Negative - Negative POCT U PROT (test code = 3259) neg Negative - Negative POCT U GLU (test code = 3256) neg Negative - Negative POCT U KETONE (test code = 3258) n/a Negative - Negative POCT U BLD (test code = 3257) n/a Negative - Negative Lab Interpretation (test code = Normal 16951-6) [facility] CenterPOID [id number] 14:36:00 Test Item Value Reference Range Interpretation Comments POCT PREG (test code = 1605) Negative On board controls acceptable with C Yes Line (test code = 3574) POCT PREG LOT # (test code = 3575) POCT PREG TEST DATE (test code = 3576) Lab Interpretation (test code = Normal 02857-1) [facility]
[2022-08-01 11:33] LABS: Absolute Lymphocytes (CBC) 2.7 K/uL (0.7-4.9); Hematocrit 36.5 % (36.0-45.0); Lymphocytes % 27.7 % (15.3-44.8); MCV 74.5 fL (80-100); MPV 8.3 fL (7.6-11.3)
[2022-08-01] MEDS ORDERED: dexAMETHasone 10 MG/ML VIAL ONE (11:39)
[2022-08-01] MEDS ORDERED: METOCLOPRAMIDE 10 MG/2mL INJ ONE ×2 (11:39→11:42)
[2022-08-01] MEDS ORDERED: NA CHLORIDE 0.9% 500 ML ONE (11:39)
[2022-08-01 11:44] LABS: Potassium 3.6 mmol/L (3.5-5.1)
--- NOTE | 2022-08-01 11:48 | RAD REPORT ---
EXAM DESCRIPTION: CT - Head Brain Wo Cont - 08/01/2022 11:41 am CLINICAL HISTORY: headache, vomiting COMPARISON: Abdomen Pelvis W Contrast dated 04/25/2021Head Brain Wo Cont dated 06/04/2020 TECHNIQUE: All CT scans are performed using dose optimization technique as appropriate and may inclu de automated exposure control or mA/KV adjustment according to patient size. FINDINGS: No intracranial hemorrhage, hydrocephalus or extra-axial fluid collection.No areas of brai n edema or evidence of midline shift. The paranasal sinuses and mastoids are clear. The calvarium is intact. IMPRESSION: No acute intracranial abnormality.
[2022-08-01] MEDS ORDERED: KETOROLAC 30 MG/ML INJ ONE (13:27)
--- NOTE | 2022-08-01 14:06 | EDPHYS ---
Physician Documentation [facility] Name: Skylar Hanson Age: 22 yrs Sex: Female : 2000 Arrival Date: 08/01/2022 Time: 10:39 Bed 11 Private MD: ED Physician Kolton Croft HPI: 08/01 10:50 This 22 yrs old Female presents to ER via Ambulatory with complaints of Doesn't Feel jmm Right, Vomiting, Headache, Passed Out Prior To Arrival. 10:50 Onset: The symptoms/episode began/occurred gradually, 3 day(s) ago. Associated signs jmm and symptoms: Pertinent positives: vomiting. This is a 22 year old female with no chronic medical conditions that presents to the ED with complaints of ongoing migraine headache beginning approx 4 days ago. Patient states she was nausea and would vomiting due to pain. This morning patient states she collapsed after vomiting. Denies sob. . Historical: - Allergies: 10:54 No Known Allergies; iw - Home Meds: 10:54 None [Active]; iw - PMHx: 10:54 None; iw - PSHx: 10:54 section; iw - Immunization history:: Adult Immunizations up to date. - Social history:: Smoking status: . ROS: 10:50 Constitutional: Negative for fever, chills, and weight loss, Cardiovascular: Negative jmm for chest pain, palpitations, and edema, Respiratory: Negative for shortness of breath, cough, wheezing, and pleuritic chest pain. 10:50 Abdomen/GI: Positive for vomiting. 10:50 Neuro: Positive for headache. 10:50 All other systems are negative. Exam: 10:50 Constitutional: This is a well developed, well nourished patient who is awake, alert, jmm and in no acute distress. Head/Face: atraumatic. Eyes: EOMI, no conjunctival erythema appreciated ENT: Moist Mucus Membranes Neck: Trachea midline, Supple Chest/axilla: Normal chest wall appearance and motion. Cardiovascular: Regular rate and rhythm. No edema appreciated Respiratory: Normal respirations, no respiratory distress appreciated Abdomen/GI: Non distended Back: Normal ROM Skin: General appearance color normal MS/ Extremity: Moves all extremities, no obvious deformities appreciated, no edema noted to the lower extremities Neuro: Awake and alert Psych: Behavior is normal, Mood is normal, Patient is cooperative and pleasant Vital Signs: 10:52 BP 114 / 74; Pulse 90; Resp 18; Pulse Ox 100% on R/A; Weight 120.2 kg; Height 5 ft. 1 iw in. (154.94 cm); Pain 10/10; 12:00 BP 121 / 74; Pulse 78; Resp 18; Pulse Ox 100% on R/A; eh3 12:58 BP 122 / 70; Pulse 85; Resp 18; Pulse Ox 100% on R/A; Pain 2/10; eh3 14:00 BP 122 / 72; Pulse 82; Resp 16; Pulse Ox 100% on R/A; eh3 10:52 Body Mass Index 50.07 (120.20 kg, 154.94 cm) iw MDM: 10:50 Patient medically screened. [facility] 14:05 Data reviewed: vital signs, nurses notes. Counseling: I had a detailed discussion with yessica the patient and/or guardian regarding: the historical points, exam findings, and any diagnostic results supporting the discharge/admit diagnosis, the need for outpatient follow up, to return to the emergency department if symptoms worsen or persist or if there are any questions or concerns that arise at home. 14:15 ED course: Imaging studies, labs, ekg unremarkable. Pain is relieved in the ED. patient jimmy advised to follow up with pcp and otherwise given strict return precautions. Patient understood and agrees with the plan of care. . 08/01 10:59 Order name: CBC with Diff; Complete Time: 11:37 [facility] 08/01 10:59 Order name: BMP; Complete Time: 11:53 [facility] 08/01 10:59 Order name: CT Head Brain wo Cont; Complete Time: 11:53 [facility] 08/01 11:00 Order name: SARS-COV-2 RT PCR (Document "Date of Onset" if Symptomatic); Complete Time: [facility] 12:02 08/01 11:00 Order name: Influenza Screen (a \\T\\ B); Complete Time: 12:02 [facility] 08/01 10:58 Order name: Urine Dipstick-Ancillary (obtain specimen); Complete Time: 11:48 [facility] 08/01 10:58 Order name: Urine Test (obtain specimen); Complete Time: 11:48 [facility] 08/01 10:59 Order name: Saline Lock; Complete Time: 11:23 [facility] 08/01 12:55 Order name: EKG - Nurse/Tech; Complete Time: 13:13 [facility] Administered Medications: 11:57 Drug: NS 0.9% 500 ml Route: IV; Rate: bolus; Site: right antecubital; iw 13:00 Follow up: IV Status: Completed infusion; IV Intake: 500ml eh3 11:57 Drug: Reglan (metoCLOPramide) 20 mg Route: IVP; Site: right antecubital; iw 12:58 Follow up: Response: Nausea is decreased eh3 11:57 Drug: Decadron - Dexamethasone 10 mg Route: IVP; Site: right antecubital; iw 12:58 Follow up: Response: Pain is decreased eh3 13:32 Drug: Ketorolac 30 mg Route: IVP; Site: right antecubital; eh3 14:12 Follow up: Response: (VIS) Vaccine information sheet provided today. Questions and/or 3 concerns addressed. VIS edition date: May 15, 2021.; Marked relief of symptoms Disposition: 15:08 Co-signature as Attending Physician, Kolton Croft MD. rn Disposition Summary: 08/01/22 14:05 Discharge Ordered Location: Home [facility] Condition: Stable [facility] Diagnosis - Headache [facility] Followup: [facility] - With: Private Physician - When: 2 - 3 days - Reason: Recheck today's complaints, Continuance of care, Re-evaluation by your physician Followup: [facility] - With: Torey Krishnamurthy MD - When: 2 - 3 days - Reason: Recheck today's complaints, Continuance of care, Re-evaluation by your physician Discharge Instructions: - Discharge Summary Sheet [facility] - Migraine Headache [facility] Forms: - Medication Reconciliation Form [facility] - Thank You Letter [facility] - Antibiotic Education [facility] - Prescription Opioid Use [facility] Prescriptions: - ondansetron 4 mg Oral tablet,disintegrating - place 1 tablet by TRANSLINGUAL route every 6 hours As needed; 20 tablet; [facility] Refills: 0, Product Selection Permitted Signatures: Dispatcher [employer] EDDante Miranda PA PA [facility] Myra Palacios RN RN iw Nieto, Roman, MD MD rn Hall, Erin, RN RN eh3 Corrections: (The following items were deleted from the chart) 14:16 14:05 Counseling: I had a detailed discussion with the patient and/or guardian yessica regarding: the historical points, exam findings, and any diagnostic results supporting the discharge/admit diagnosis, the need for outpatient follow up, to return to the emergency department if symptoms worsen or persist or if there are any questions or concerns that arise at home, yessica
--- NOTE | 2022-08-01 14:06 | ER ---
Nurse's Notes [facility] Name: Skylar Hanson Age: 22 yrs Sex: Female : 2000 Arrival Date: 08/01/2022 Time: 10:39 Bed 11 Private MD: Diagnosis: Headache Presentation: 08/01 10:52 Chief complaint: Patient states: pressure in head, worsens when she turns her head, X 4 iw days, also vomiting X 4 days, states she passed out after her shower today, c/o chills and body shaking/aches. Coronavirus screen: Client presents with at least one sign or symptom that may indicate coronavirus-19. Ebola Screen: Patient negative for fever greater than or equal to 101.5 degrees Fahrenheit, and additional compatible Ebola Virus Disease symptoms Patient denies exposure to infectious person. Patient denies travel to an Ebola-affected area in the 21 days before illness onset. No symptoms or risks identified at this time. Initial Sepsis Screen: Does the patient meet any 2 criteria? No. Patient's initial sepsis screen is negative. Does the patient have a suspected source of infection? No. Patient's initial sepsis screen is negative. Risk Assessment: Do you want to hurt yourself or someone else? Patient reports no desire to harm self or others. Onset of symptoms was July 28, 2022. 10:52 Method Of Arrival: Ambulatory iw 10:52 Acuity: JOSE 3 iw Historical: - Allergies: 10:54 No Known Allergies; iw - Home Meds: 10:54 None [Active]; iw - PMHx: 10:54 None; iw - PSHx: 10:54 section; iw - Immunization history:: Adult Immunizations up to date. - Social history:: Smoking status: . Screenin:00 Abuse screen: Denies threats or abuse. Denies injuries from another. Nutritional eh3 screening: No deficits noted. Tuberculosis screening: No symptoms or risk factors identified. Fall Risk None identified. Assessment: 12:00 General: Appears in no apparent distress. uncomfortable, Behavior is calm, cooperative, eh3 appropriate for age. Pain: Complains of pain in head Pain does not radiate. Pain currently is 2 out of 10 on a pain scale. Neuro: Level of Consciousness is awake, alert, obeys commands, Oriented to person, place, time, situation. Cardiovascular: Capillary refill < 3 seconds Patient's skin is warm and dry. Respiratory: Airway is patent Respiratory effort is even, unlabored. GI: Abdomen is round non-distended, Reports nausea, vomiting. : No signs and/or symptoms were reported regarding the genitourinary system. EENT: No deficits noted. Derm: No deficits noted. Musculoskeletal: Circulation, motion, and sensation intact. Range of motion: intact in all extremities. 12:14 Reassessment:. iw 12:58 Reassessment: Patient and/or family updated on plan of care and expected duration. Pain eh3 level reassessed. Patient is alert, oriented x 3, equal unlabored respirations, skin warm/dry/pink. 14:00 Reassessment: Patient and/or family updated on plan of care and expected duration. Pain eh3 level reassessed. Patient is alert, oriented x 3, equal unlabored respirations, skin warm/dry/pink. Vital Signs: 10:52 BP 114 / 74; Pulse 90; Resp 18; Pulse Ox 100% on R/A; Weight 120.2 kg; Height 5 ft. 1 iw in. (154.94 cm); Pain 10/10; 12:00 BP 121 / 74; Pulse 78; Resp 18; Pulse Ox 100% on R/A; eh3 12:58 BP 122 / 70; Pulse 85; Resp 18; Pulse Ox 100% on R/A; Pain 2/10; eh3 14:00 BP 122 / 72; Pulse 82; Resp 16; Pulse Ox 100% on R/A; eh3 10:52 Body Mass Index 50.07 (120.20 kg, 154.94 cm) ED Course: 10:39 Patient arrived in ED. am2 10:45 Dante Garcia PA is PHCP. [facility] 10:45 Kolton Croft MD is Attending Physician. [facility] 10:51 Myra Palacios, MAYNOR is Primary Nurse. 10:54 Triage completed. iw 10:54 Arm band placed on. iw 10:54 Patient has correct armband on for positive identification. Bed in low position. Call 3 light in reach. Side rails up X2. Pulse ox on. 11:23 Initial lab(s) drawn, by me, sent to lab. Inserted saline lock: 20 gauge in right iw antecubital area, using aseptic technique. Blood collected. 11:42 CT Head Brain wo Cont In Process Unspecified. EDMS 14:05 Torey Krishnamurthy MD is Referral Physician. [facility] 14:14 No provider procedures requiring assistance completed. IV discontinued, intact, eh3 bleeding controlled, No redness/swelling at site. Pressure dressing applied. Administered Medications: 11:57 Drug: NS 0.9% 500 ml Route: IV; Rate: bolus; Site: right antecubital; iw 13:00 Follow up: IV Status: Completed infusion; IV Intake: 500ml eh3 11:57 Drug: Reglan (metoCLOPramide) 20 mg Route: IVP; Site: right antecubital; iw 12:58 Follow up: Response: Nausea is decreased eh3 11:57 Drug: Decadron - Dexamethasone 10 mg Route: IVP; Site: right antecubital; iw 12:58 Follow up: Response: Pain is decreased eh3 13:32 Drug: Ketorolac 30 mg Route: IVP; Site: right antecubital; eh3 14:12 Follow up: Response: (VIS) Vaccine information sheet provided today. Questions and/or eh3 concerns addressed. VIS edition date: May 15, 2021.; Marked relief of symptoms Medication: 14:14 VIS not applicable for this client. eh3 Intake: 13:00 IV: 500ml; Total: 500ml. eh3 Outcome: 14:05 Discharge ordered by . [facility] 14:14 Discharged to home ambulatory. eh3 14:14 Condition: stable 14:14 Discharge instructions given to patient, Instructed on discharge instructions, follow up and referral plans. medication usage, Demonstrated understanding of instructions, follow-up care, medications, Prescriptions given X 1. 14:21 Patient left the ED. eh3 Signatures: Dispatcher [employer] EDMS Dante Garcia PA PA jmm Williams, Irene, RN MAYNOR iw Alicia Mcclelland Erin, RN RN eh3
[2022-08-01 14:38] VITALS: O2SAT 100
[2022-08-01 14:54] VITALS: BP 122/72
--- NOTE | 2022-08-02 18:40 | EKG ---
Test Date: 2022-08-01 Test Time: 13:12:09 Legal Administrative Secretary: JENNIFER MEASUREMENT RESULTS: Intervals: Rate: 73 CO: 114 QRSD: 94 QT: 386 QTc: 425 [place]ett: P: 59 CO: 114 QRS: 62 T: 17 INTERPRETIVE STATEMENTS: Normal sinus rhythm Normal ECG No previous ECG available for comparison Electronically Signed On 08-02-22 18:37:36 CDT by Abelardo See
== END 2022-08-01 14:21 | disposition home or self-care (01) ==
LOC: ER 10:37
DX: R51.9 Headache, unspecified (principal); R11.2 Nausea with vomiting, unspecified; Z20.822 Contact with and (suspected) exposure to COVID-19
CPT/HCPCS: 96361; 93005; 85025; 80048; 36415; 87804 ×2; 70450; 96375; 96374; 99284; U0003; J2765 ×2; J1100; J7040